=== PATIENT | female | born 1965 | race Caucasian/White ===

== ENCOUNTER → 2016-10-15 | Outpatient (CLI) | payer MEDICAID | LOC: WI 11:20 | PROVIDERS: ATTEND Internal Medicine | DX: Z12.31 Encounter for screening mammogram for malignant neoplasm of breast (principal); N63 Unspecified lump in breast | CPT/HCPCS: 77067; G0202 ==

== ENCOUNTER → 2016-11-05 | Outpatient (CLI) | payer MEDICAID | LOC: WI 12:02 | PROVIDERS: ATTEND Internal Medicine | DX: N63 Unspecified lump in breast (principal) | CPT/HCPCS: G0206-52 ==

== ENCOUNTER 2017-03-01 17:27 | Emergency (ER) | payer MEDICAID ==
[2017-03-01 17:36] VITALS: BP 140/82
[2017-03-01] MEDS ORDERED: SULFAMETHOXAZOLE/TRIMETHOPRIM 800-160 MG TABLET PO ONE (18:05)
[2017-03-01] MEDS ORDERED: IBUPROFEN 800 MG TABLET PO ONE (18:05)
[2017-03-01] MEDS ORDERED: CEPHALEXIN 500 MG CAPSULE PO ONE (18:08)
--- NOTE | 2017-03-01 18:10 | ER Document Report ---
ED Skin Rash/Insect Bite/Abscs - General Chief Complaint: Abscess Stated Complaint: POSSIBLE SPIDER BITE Time Seen by Provider: 03/01/17 17:50 Mode of Arrival: Ambulatory Information source: Patient Notes: -year-old female presents to ED for an abscess to the right posterior upper arm. She states she had a redness for the last 2-3 days. She denies any drainage. She also has nasal congestion with pain in both ears. TRAVEL OUTSIDE OF THE [place] IN LAST 30 DAYS: No - HPI Patient complains to provider of: Tender/swollen area - Right upper posterior arm Onset: Other - Several days Onset/Duration: Gradual Quality of pain: Sharp Severity: Moderate Pain Level: 4 Skin Character: Abscess, Other - Runny nose nasal pressure ear pain Quality of rash: Painful Identify cause: No Exacerbated by: Movement Relieved by: Denies Similar symptoms previously: Yes Recently seen / treated by doctor: No - Related Data Allergies/Adverse Reactions: Penicillins Allergy (Verified 11/26/15 01:05) Past Medical History - General Information source: Patient - Social History Smoking Status: Never Smoker Cigarette use (# per day): No Chew tobacco use (# tins/day): No Smoking Education Provided: No Frequency of alcohol use: None Drug Abuse: None Lives with: Family Family History: CAD, Hyperlipidemia, Malignancy, Other - Past Medical History Cardiac Medical History: Reports: Hx Hypercholesterolemia, Hx Hypertension Pulmonary Medical History: Reports: Hx Asthma EENT Medical History: Reports: None Neurological Medical History: Reports: Hx Migraine Endocrine Medical History: Reports: Hx Hypothyroidism Renal/ Medical History: Reports: None Malignancy Medical History: Reports: None GI Medical History: Reports: Hx Gastroesophageal Reflux Disease Musculoskeltal Medical History: Reports Hx Muscle Spasm Skin Medical History: Reports Hx Cellulitis Psychiatric Medical History: Reports: Hx Anxiety, Hx Bipolar Disorder, Hx Depression Traumatic Medical History: Reports: None Infectious Medical History: Reports: None Surgical Hx: Negative Past Surgical History: Reports: None - Immunizations Immunizations up to date: Yes Hx Diphtheria, Pertussis, Tetanus Vaccination: Yes - 5yr Review of Systems - Review of Systems Constitutional: Recent illness EENT: Ear pain, Nose discharge, Sinus discharge Cardiovascular: No symptoms reported Respiratory: No symptoms reported Gastrointestinal: No symptoms reported Genitourinary: No symptoms reported Female Genitourinary: No symptoms reported Musculoskeletal: No symptoms reported Skin: Other - Tender swollen red area to the right posterior upper arm for the past 2-3 days Physical Exam - Vital signs Vitals: Temp Pulse Resp BP Pulse Ox 98.1 F 90 18 140/82 H 96 03/01/17 17:34 03/01/17 17:34 03/01/17 17:34 03/01/17 17:34 03/01/17 17:34 Interpretation: Normal - General General appearance: Appears well, Alert - HEENT Head: Normocephalic, Atraumatic Eyes: Normal Pupils: PERRL Ears: Normal External canal: Normal Tympanic membrane: Normal Sinus: Normal Nasal: Purulent discharge, Swelling Mouth/Lips: Normal Mucous membranes: Normal Pharynx: Post nasal drainage Neck: Normal - Respiratory Respiratory status: No respiratory distress Chest status: Nontender Breath sounds: Normal Chest palpation: Normal - Cardiovascular Rhythm: Regular Heart sounds: Normal auscultation Murmur: No - Abdominal Inspection: Normal Distension: No distension Bowel sounds: Normal Tenderness: Nontender Organomegaly: No organomegaly - Back Back: Normal, Nontender - Extremities General upper extremity: Normal color, Normal ROM, Normal temperature General lower extremity: Normal inspection, Nontender, Normal color, Normal ROM , Normal temperature, Normal weight bearing. No: Kenya's sign Arm: Tender - The swollen area on the right upper posterior arm. Abscess - Neurological Neuro grossly intact: Yes Cognition: Normal Orientation: AAOx4 Clarissa Coma Scale Eye Opening: Spontaneous [place] Coma Scale Verbal: Oriented Clarissa Coma Scale Motor: Obeys Commands Clarissa Coma Scale Total: 15 Speech: Normal Motor strength normal: LUE, RUE, LLE, RLE Sensory: Normal - Psychological Associated symptoms: Normal affect, Normal mood - Skin Skin Temperature: Warm Skin Moisture: Dry Skin Color: Normal Skin irregularity: Abscess - Right upper posterior arm Irregularity with: Swelling, Tenderness Course - Vital Signs Vital signs: Temp Pulse Resp BP Pulse Ox 98.1 F 90 18 140/82 H 96 03/01/17 17:34 03/01/17 17:34 03/01/17 17:34 03/01/17 17:34 03/01/17 17:34 Procedures - Incision and Drainage Right Upper Arm Type: Simple Anesthetic type: Other - none mL's of anesthetic: 0 Blade size: Other - 18 ga needle I&D procedure: Betadine prep applied Incision Method: Incision made with needle Amount/type of drainage: moderate amount of drainage Discharge - Discharge Clinical Impression: Abscess of right arm URI (upper respiratory infection) Qualifiers: URI type: unspecified URI Qualified Code(s): J06.9 - Acute upper respiratory infection, unspecified Condition: Stable Disposition: HOME, SELF-CARE Instructions: Family Physicians / Practices Additional Instructions: ABSCESS: You have an abscess (boil). This a pus-forming infection, usually due to staph. Some boils may be left to drain on their own, but most require lancing. From the time the tender lump first appears, it may be three or four days before the abscess is ready to scarlett. Local heat and rest help at this stage of treatment. An antibiotic may prevent spread of the infection. Once the abscess is opened, packing may be placed into it. This is done so pus is not sealed inside by premature closure of the cavity. The packing will be removed at your follow-up visit or you may be advised to remove it yourself at home. Sometimes this packing must be replaced a few times during healing. The wound will heal with surprisingly little scar. Depending on the size and location of an abscess, healing can take one to four weeks. You may shower and wash the area around the incision site two or three times a day. Antibiotics may be prescribed, but are usually not necessary after an abscess has been drained. If you develop fever, chills, worsening pain, or increasing swelling in the area, call the doctor or return immediately. UPPER RESPIRATORY ILLNESS: You have a viral infection of the respiratory passages -- a "cold." This common infection causes nasal congestion, drainage, and often sore throat and cough. It is highly contagious. The disease usually lasts about 10 to 14 days. There is no "cure" for the viral infection -- it must run its course. If there is a complication, such as bacterial infection in the nose, sinuses, middle ear, or bronchial tubes, antibiotics may be required. The antibiotics won't affect the virus. Drink plenty of fluids. A humidifier may help. An expectorant medication or decongestant may make you more comfortable. Use acetaminophen or ibuprofen for fever or aches. See the doctor if fever persists over two days, if there is any significant worsening of your symptoms, or if you simply fail to improve as expected. POST INCISION AND DRAINAGE: You have had an incision made to allow drainage of an abscess. The incision must remain open so that pus and debris can drain from the wound. If the abscess cavity is large, packing is placed. This keeps the tissues from collapsing and trapping pus inside, while the body shrinks the cavity. The packing may need to be replaced every day or two. The physician will instruct you on the packing. Keep a bulky dressing over the area. Replace it if it becomes saturated with blood or pus. Do not disturb the packing (if present). You may shower and cleanse the area with gentle soap and warm water two or three times a day. Local warmth may be soothing, and may promote faster healing. Return if you develop high fever or chills, or if you note spreading redness, increasing swelling, or increasing tenderness. CEPHALEXIN: The antibiotic you've been prescribed is a member of the cephalosporin class. This type of antibiotic covers a wide variety of infections, including those of the skin, lungs, and urinary tract. It's useful for staph infections. This antibiotic is slightly similar to the penicillin family. In rare cases , a person who is allergic to penicillin will also be allergic to this medication. If you have had a severe allergic reaction to penicillin, and have not taken this antibiotic since that time, notify your doctor. Antibiotics which cover many germs ("broad spectrum" antibiotics) are more likely to cause diarrhea or "yeast" infections. Women prone to vaginal yeast problems may suffer an attack after taking this antibiotic. In infants, oral thrush (white spots "stuck" on the cheek) or yeast diaper rash may result. See your doctor if these problems occur. Call at once if you develop itching, hives , shortness of breath, or lightheadedness. TRIMETHOPRIM-SULFA: You have been given a prescription for trimethoprim-sulfa (TMS, Septra, Bactrim). This is a combination antibiotic of the sulfa class, often used for urinary tract infections, middle ear infections, bronchitis, shigella intestinal infection, and Pneumocystis pneumonia. TMS is usually well-tolerated. Occasional side effects include nausea and decreased appetite. Septra is not recommended for infants less than two months of age. Do not take this medication if you have experienced severe side effects or allergy to sulfa medicine. You should stop this medicine at once and contact your physician if you develop any rash, joint pain, shortness of breath, bruising, or jaundice ( yellow color in the skin), or if you develop any other new or unusual symptoms. FOLLOW-UP CARE: Most simple abscesses will not require a follow up visit. If you had packing placed in the abscess, remove it as instructed by the physician. If you have been referred to a physician for follow-up care, call the physicians office for an appointment as you were instructed or within the next two days. If you experience worsening or a significant change in your symptoms, return to the Emergency Department at any time for re-evaluation. Prescriptions: Cephalexin Monohydrate [Keflex 500 mg Capsule] 500 mg PO QID #20 capsule Sulfamethoxazole/Trimethoprim [Septra-Ds 800-160 mg Tablet] 1 tab PO BID #14 tablet Forms: Elevated Blood Pressure Referrals: BERTO APONTE MD [Primary Care Provider] - Follow up as needed
== END 2017-03-01 18:21 | disposition home or self-care (01) ==
LOC: ER 17:27
PROC: 0H9BXZZ Drainage of Right Upper Arm Skin, External Approach (ICD-10-PCS; principal; 2017-03-01)
DX: L02.413 Cutaneous abscess of right upper limb (principal); J06.9 Acute upper respiratory infection, unspecified; R09.81 Nasal congestion; H92.03 Otalgia, bilateral; I10 Essential (primary) hypertension; J45.909 Unspecified asthma, uncomplicated; Z88.0 Allergy status to penicillin
CPT/HCPCS: 99283; 87070; 87205; 87075; 10060; J3490 ×2

== ENCOUNTER → 2018-02-11 | Outpatient (CLI) | payer MEDICAID ==
--- NOTE | 2018-02-11 10:45 | WOMENS IMAGING REPORT ---
EXAM DESCRIPTION: 3D SCREENING MAMMO BILAT COMPLETED DATE/TIME: 02/11/2018 10:26 am REASON FOR STUDY: SCREENING MAMMO Z12.31 ENCNTR SCREEN MAMMOGRAM FOR MALIGNANT NEOPLASM OF JESSICA COMPARISON: 10/15/2016 and 09/27/2014. TECHNIQUE: Standard craniocaudal and mediolateral oblique views of each breast recorded using digita l acquisition and breast tomosynthesis. LIMITATIONS: None. FINDINGS: No masses, calcifications or architectural distortion. No areas of suspicion. Read with the assistance of CAD. .[facility] - R2 [employer] Version 1.3 .[facility] - R2 [employer] Version 1.3 .[facility] - R2 C[employer] Version 2.4 .[facility] - R2 Cenova Version 2.4 .[facility] - R2 [employer] Version 9.2 IMPRESSION: NORMAL MAMMOGRAM. BIRADS 1. BREAST DENSITY: a. The breasts are almost entirely fatty. BIRAD: 1 NEGATIVE RECOMMENDATION: ROUTINE SCREENING COMMENT: The patient has been notified of the results by letter per SA requirements. Additional no tification policies are in place for contacting patient with suspicious or incomplete findings. Quality ID #[id number]: The [employer] recommends an annual screening mammogram for women aged 40 years or over. This facility utilizes a reminder system to ensure that all patients receive reminder letters, and/or direct phone calls for appointments. This includes reminders for routine scr eening mammograms, diagnostic mammograms, or other Breast Imaging Interventions when appropriate. Th is patient will be placed in the appropriate reminder system. The [employer] (ACR) has developed recommendations for screening MRI of the breast s in certain patient populations, to be used in conjunction with mammography. Breast MRI surveillanc e may be appropriate for women with more than 20% lifetime risk of developing breast cancer as deter mined by genetic testing, significant family history of the disease, or history of mantle radiation f or Hodgkins Disease. ACR Practice Guidelines 2008. DBT Technology DBT is a type of tomographic mammography. With conventional mammography, overlapping breast tissue ma y make lesions difficult to detect, even with good compression. DBT uses an x-ray tube that rotates a round the breast, taking images at different angles. These images are then combined to create thin sl ices of the breast that the radiologist can view as a 3D reconstruction. The [employer] unit can perform full-field digital mammograms (2D imaging); or DBT (3D imaging); or both, in a combination mode that quickly performs both the mammogram and the tomosynthesis scan while the breast is still compressed. PQRS 6045F: Fluoroscopic imaging is not utilized for breast tomosynthesis. TECHNICAL DOCUMENTATION: FINDING NUMBER: (1) ASSESSMENT: (1) JOB ID: [id number] [employer]- All Rights Reserved Reading location - IP/workstation name: [facility]
== END ==
LOC: WI 10:22
PROVIDERS: ATTEND Physician Assistant
DX: Z12.31 Encounter for screening mammogram for malignant neoplasm of breast (principal)
CPT/HCPCS: 77063; 77067

== ENCOUNTER 2018-04-06 23:17 | Emergency (ER) | payer MEDICAID ==
[2018-04-07] MEDS ORDERED: DEXAMETHASONE SOD PHOS INJ 10 MG/1 ML VIAL IM ONE (00:30)
[2018-04-07] MEDS ORDERED: ALBUTEROL SULFATE HFA (90 MCG/PUFF) 8 GM MDI (1 MDI/ER DISP) IH ONE (00:31)
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
== END 2018-04-07 01:01 | disposition home or self-care (01) ==
LOC: ER 23:17
DX: J06.9 Acute upper respiratory infection, unspecified (principal); R06.02 Shortness of breath; R05 Cough; J45.909 Unspecified asthma, uncomplicated; Z88.0 Allergy status to penicillin; E78.00 Pure hypercholesterolemia, unspecified; I10 Essential (primary) hypertension; E03.9 Hypothyroidism, unspecified; F41.9 Anxiety disorder, unspecified; F32.9 Major depressive disorder, single episode, unspecified; R40.2412 Glasgow coma scale score 13-15, at arrival to emergency department
CPT/HCPCS: 99284; 96372; J1100; J3490

== ENCOUNTER 2018-04-16 20:41 | Emergency (ER) | payer MEDICAID ==
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
--- NOTE | 2018-04-17 00:01 | RADIOLOGY REPORT (SQ) ---
EXAM DESCRIPTION: CT CERVICAL SPINE WITHOUT IV CONTRAST COMPLETED DATE/TME: 04/16/2018 23:13 CLINICAL HISTORY: 53 years, Female, fall COMPARISON: None. TECHNIQUE: Axial CT images of the cervical spine were obtained without contrast. Sagittal and coronal reformats were performed. DLP 521 Images stored on PACS. All CT scanners at this facility use dose modulation, iterative reconstruction, and/or weight based dosing when appropriate to reduce radiation dose to as low as reasonably achievable (ALARA). [facility]: Dose Right [facility]: CareDose [facility]: Dose Right [facility]: Teradose 4D [facility]: [employer] LIMITATIONS: None. FINDINGS: The alignment of the cervical spine is satisfactory. There is no acute fracture or subluxation. The vertebral heights are maintained. The craniocervical junction is intact. The prevertebral soft tissues are normal. There is multilevel spondylosis at C4-C5 to C7-T1 with disc space narrowing, endplate sclerosis and marginal osteophytes. IMPRESSION: No acute fracture or subluxation TECHNICAL DOCUMENTATION: Quality ID # [id number]: Final reports with documentation of one or more dose reduction techniques (e.g., Automated exposure control, adjustment of the mA and/or kV according to patient size, use of iterative reconstruction technique) 2010 [employer]- All Rights Reserved
--- NOTE | 2018-04-17 00:49 | RADIOLOGY REPORT (SQ) ---
2 VIEWS OF THE RIGHT FOREARM 3 VIEWS OF THE RIGHT HAND HISTORY: Pain status post fall. COMPARISON: None. FINDINGS/IMPRESSION: Generalized osteopenia is present. No acute fracture or malalignment. Joint spaces are preserved. No focal soft tissue swelling is seen.
--- NOTE | 2018-04-17 00:51 | RADIOLOGY REPORT (SQ) ---
3 VIEWS OF THE RIGHT FIRST TOE HISTORY: Fall. COMPARISON: None. FINDINGS/IMPRESSION: Generalized osteopenia is present. Nondisplaced chip fracture of the base of the first proximal phalanx with overlying soft tissue swelling. No dislocation is seen.
--- NOTE | 2018-04-17 00:52 | RADIOLOGY REPORT (SQ) ---
XR CHEST 2 VIEWS HISTORY: Fall. COMPARISON: None. FINDINGS/IMPRESSION: Normal cardiomediastinal silhouette. Lungs are clear. No pleural effusion or pneumothorax is seen. No acute osseous findings.
[2018-04-17 01:56] VITALS: BP 141/76
--- NOTE | 2018-04-17 20:26 | EKG REPORT ---
SEVERITY:- ABNORMAL ECG - SINUS RHYTHM NONSPECIFIC INTRAVENTRICULAR CONDUCTION DELAY LOW VOLTAGE THROUGHOUT BORDERLINE R WAVE PROGRESSION, ANTERIOR LEADS : Confirmed by: Nayana Melendez MD 17-Apr-2018 20:25:34
== END 2018-04-17 01:45 | disposition home or self-care (01) ==
LOC: ER 20:41
DX: S16.1XXA Strain of muscle, fascia and tendon at neck level, initial encounter (principal); S92.414A Nondisplaced fracture of proximal phalanx of right great toe, initial encounter for closed fracture; R07.9 Chest pain, unspecified; M79.601 Pain in right arm; W19.XXXA Unspecified fall, initial encounter; I10 Essential (primary) hypertension; E78.00 Pure hypercholesterolemia, unspecified; E03.9 Hypothyroidism, unspecified
CPT/HCPCS: 71046; 72125; 93005; 93010; 99285

== ENCOUNTER 2018-04-19 16:49 | Emergency (ER) | payer MEDICAID ==
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
--- NOTE | 2018-04-19 19:28 | ER Document Report ---
ED General - General Chief Complaint: Knee Pain Stated Complaint: FALL/RIGHT KNEE PAIN, SWELLING Time Seen by Provider: 04/19/18 17:21 Mode of Arrival: Ambulatory Notes: Patient is a 53-year-old female that presents to the emergency department for chief complaint of knee pain, chest and neck pain after fall and injury. Patient had a fall a few days ago, and was seen in the emergency department at that time, she did fracture her right great toe, she states that the reason she came back as she has been having pain in her right knee, she has been having a different gait as a result of her fracture, may have strained it. She does have osteoarthritis, and sees pain management for this. She denies any additional falls since a few days ago, she currently rates her pain as a 4 out of 10, worse with ambulation, describes it as an aching and throbbing sensation , and she felt some swelling in her knee which she decided to come to the emergency department to have it evaluated. Past Medical History: Osteoarthritis Past Surgical History: Denies pertinent surgical history Social History: Denies tobacco use, denies alcohol or drug use. Family History: Reviewed and noncontributory for presenting illness Allergies: Reviewed, see documented allergy list. REVIEW OF SYSTEMS: Unless otherwise stated in this report the patient's positive and negative responses for review of systems for constitutional, eyes, ENT, cardiovascular, respiratory, gastrointestinal, neurological, genitourinary, musculoskeletal, and integumentary systems and related systems to the presenting problem are either as stated in the HPI or were not pertinent or were negative for the symptoms and/or complaints related to the presenting medical problem. PHYSICAL EXAMINATION: Vital signs reviewed, nursing noted reviewed. GENERAL: Well-appearing, well-nourished and in no acute distress. HEAD: Atraumatic, normocephalic. EYES: Eyes appear normal, extraocular movements intact, sclera anicteric, conjunctiva are normal. ENT: nares patent, oropharynx clear without exudates. Moist mucous membranes. NECK: Normal range of motion, supple without lymphadenopathy LUNGS: Breath sounds clear to auscultation bilaterally and equal. No wheezes rales or rhonchi. HEART: Regular rate and rhythm without murmurs ABDOMEN: Soft, nontender, normoactive bowel sounds. No rebound, guarding, or rigidity. No masses appreciated. EXTREMITIES: There is mild tenderness to palpation to the joint line of the right knee, and there is a small effusion appreciated, some discomfort with range of motion of the right knee, but overall good range of motion, on the right great toe there is mild ecchymosis and tenderness to palpation, good cap refill, and sensation intact. The rest of the patient's extremity exam is grossly unremarkable. No gross deformities. Nontender, good range of motion, no pitting or edema. NEUROLOGICAL: No focal neurological deficits. Moves all extremities spontaneously Motor and sensory grossly intact on exam. PSYCH: Normal mood, normal affect. SKIN: Warm, Dry, normal turgor, no rashes or lesions noted on exposed skin TRAVEL OUTSIDE OF THE [place] IN LAST 30 DAYS: No - Related Data Allergies/Adverse Reactions: Penicillins Allergy (Verified 11/26/15 01:05) Past Medical History - General Information source: Patient - Social History Smoking Status: Never Smoker Frequency of alcohol use: None Drug Abuse: None Family History: CAD, Hyperlipidemia, Malignancy, Other Patient has suicidal ideation: No Patient has homicidal ideation: No - Past Medical History Cardiac Medical History: Reports: Hx Hypercholesterolemia, Hx Hypertension Denies: Hx Heart Murmur Pulmonary Medical History: Reports: Hx Asthma Denies: Hx Respiratory Failure, Hx Sleep Apnea, Hx Tuberculosis Neurological Medical History: Reports: Hx Migraine Endocrine Medical History: Reports: Hx Hypothyroidism Renal/ Medical History: Denies: Hx Peritoneal Dialysis GI Medical History: Reports: Hx Gastroesophageal Reflux Disease. Denies: Hx Pancreatitis Musculoskeletal Medical History: Reports Hx Muscle Spasm Skin Medical History: Reports Hx Cellulitis Psychiatric Medical History: Reports: Hx Anxiety, Hx Bipolar Disorder, Hx Depression - Immunizations Immunizations up to date: Yes Hx Diphtheria, Pertussis, Tetanus Vaccination: Yes - 5yr Physical Exam - Vital signs Vitals: Temp Pulse Resp BP Pulse Ox 97.6 F 113 H 18 112/50 L 98 04/19/18 17:27 04/19/18 17:27 04/19/18 17:27 04/19/18 17:27 04/19/18 17:27 Course - Re-evaluation Re-evalutation: Patient seen and examined vital signs reviewed. Patint was evaluated and treated as appropriate for the patient's presenting symptoms and complaint, with consideration of any critical or life threatening conditions that may be associated with their obtained history and exam as noted above. Patient was offered Toradol for her pain, but declined at this time X-rays of the knee demonstrated osteoarthritis, without acute bony injury or fracture. The patient was re-evaluated and was stable, pain controlled Evaluation was most consistent with knee strain, likely overuse from recent injuries. We will have the patient follow-up with orthopedics, and she [place] sees pain management. Plan of care was discussed with the patient at this point, after careful consideration I feel that that patient can be discharged from the emergency department, the patient was educated treatments and reasons to return to the emergency department based on their presumed diagnosis as noted above, they were advised to followup with a primary care physician in 2-3 days. Patient was agreeable to plan of care. *Note is created using voice recognition software and may contain spelling, syntax or grammatical errors. Knee X-Ray 04/19/18 19:49 IMPRESSION: No acute fracture or dislocation. Degenerative changes. Small suprapatellar fluid collection. - Vital Signs Vital signs: Temp Pulse Resp BP Pulse Ox 97.6 F 113 H 18 112/50 L 98 04/19/18 17:27 04/19/18 17:27 04/19/18 17:27 04/19/18 17:27 04/19/18 17:27 - EKG Interpretation by Me Additional EKG results interpreted by me: 04/19/18 19:27 EKG demonstrates sinus rhythm with a ventricular rate of 64 bpm, slight left axis deviation, no ST changes noted, poor R wave progression, this is compared with prior EKG from 04/16/2018, without significant change. Discharge - Discharge Clinical Impression: Knee pain Qualifiers: Chronicity: acute Laterality: right Qualified Code(s): M25.561 - Pain in right knee Condition: Stable Disposition: HOME, SELF-CARE Instructions: Sprained Knee ([facility]) Additional Instructions: Please follow-up with orthopedic surgery. Referrals: KOFI RAUSCH MD [Primary Care Provider] - Follow up in 3-5 days SUSAN CONTE MD [ACTIVE STAFF] - Follow up in 3-5 days
[2018-04-19] MEDS ORDERED: KETOROLAC TROMETHAMINE 60 MG/2 ML SDV IM ONE (20:52)
--- NOTE | 2018-04-19 22:20 | RADIOLOGY REPORT (SQ) ---
EXAM DESCRIPTION: Right knee x-rays, four views. April 19, 2018 at 8:47 PM CLINICAL HISTORY: right knee pain, after fall COMPARISON: None FINDINGS: Four x-ray views of the right knee were submitted. There is narrowing and osteophytic formation at the medial, lateral and patellofemoral compartments. There is no acute fracture or dislocation. There is no radiopaque foreign body material. There is a small suprapatellar fluid collection. IMPRESSION: No acute fracture or dislocation. Degenerative changes. Small suprapatellar fluid collection.
--- NOTE | 2018-04-19 22:59 | EKG REPORT ---
SEVERITY:- BORDERLINE ECG - SINUS RHYTHM BORDERLINE R WAVE PROGRESSION, ANTERIOR LEADS BORDERLINE T ABNORMALITIES, INFERIOR LEADS : Confirmed by: Charla Pino 19-Apr-2018 22:59:02
[2018-04-20 05:11] VITALS: BP 111/79
== END 2018-04-19 21:20 | disposition home or self-care (01) ==
LOC: ER 16:49
DX: M17.11 Unilateral primary osteoarthritis, right knee (principal); M25.561 Pain in right knee; M25.461 Effusion, right knee; R07.9 Chest pain, unspecified; M54.2 Cervicalgia; S92.401A Displaced unspecified fracture of right great toe, initial encounter for closed fracture; W19.XXXA Unspecified fall, initial encounter; J45.909 Unspecified asthma, uncomplicated; I10 Essential (primary) hypertension; Z88.0 Allergy status to penicillin
CPT/HCPCS: 93005; 93010; 99283

== ENCOUNTER 2018-05-21 22:36 | Emergency (ER) | payer MEDICAID ==
[2018-05-21 22:46] VITALS: BP 103/89
[2018-05-22] MEDS ORDERED: IBUPROFEN 800 MG TABLET PO ONE (00:13)
--- NOTE | 2018-05-22 01:38 | RADIOLOGY REPORT (SQ) ---
EXAM DESCRIPTION: XR ANKLE 3 OR MORE VIEWS COMPLETED DATE/TME: 05/22/2018 00:12 CLINICAL HISTORY: 53 years, Female, pain, burise COMPARISON: None. NUMBER OF VIEWS: 3 TECHNIQUE: 3 view right ankle LIMITATIONS: None. FINDINGS: Osteopenia. Diffuse soft tissue swelling. Negative for acute fracture or dislocation. Well-corticated 2 mm ossific density near the lateral malleolus may relate to remote avulsion fracture. Ankle mortise is otherwise intact. Calcaneal spurs are present. Degenerative changes of the midfoot. IMPRESSION: Osteopenia. Negative for acute fracture or dislocation. Diffuse soft tissue swelling. Probable remote avulsion injury of the lateral malleolus. Calcaneal spurs. Degenerative change. 2010 [employer]- All Rights Reserved
--- NOTE | 2018-05-22 01:41 | ER Document Report ---
Addendum entered and electronically signed by BROWN DEL VALLE PA-C 07/09/18 01:23: Procedures - Immobilization Right Lower Ankle Pre-Proc Neuro Vasc Exam: Normal Immobilizer type: Short Leg Posterior Performed by: Provider assisted, PCT Post-Proc Neuro Vasc Exam: Normal Alignment checked and good: Yes Original Note: HPI - HPI Patient complains to provider of: Right ankle pain Pain Level: 4 Context: Patient is a morbidly obese 53-year-old female presenting to the emergency department complaining of her right ankle pain. Patient states she was to this facility about a month ago from a fall and stated at that time she broke her right big toe. Patient states she was instructed to walk with a boot but has not done that because it was uncomfortable. Patient states the pain in her right foot and knee had since subsided but over the last couple of days it has started again. Patient states today she noticed bruising to the right aspect of her ankle which concerned her so she presents to the emergency room. Patient is unsure of any recent falls or injuries. Patient states she does have osteoarthritis and has chronic pain in bilateral knees. Patient states over the last 2 months she has been living in a hotel and has been doing a lot of walking. Patient states she is under a lot of stress but is unable to recall a time where she would have fallen or hurt her right ankle. Past medical history: GERD, depression, hyperlipidemia, osteoarthritis Meds, Lipitor, omeprazole, Percocet Allergies: penicillin Patient states she sees pain management for her Percocet medications due to osteoarthritis and chronic low back pain. - CONSTITUTIONAL Constitutional: DENIES: Fever, Chills - REPRODUCTIVE Reproductive: DENIES: : - MUSCULOSKELETAL Musculoskeletal: REPORTS: Extremity pain - right ankle, right calf Past Medical History - General Information source: Patient - Social History Smoking Status: Never Smoker Frequency of alcohol use: None Drug Abuse: None Lives with: Family Family History: CAD, Hyperlipidemia, Malignancy, Other Patient has suicidal ideation: No Patient has homicidal ideation: No - Past Medical History Cardiac Medical History: Reports: Hx Hypercholesterolemia, Hx Hypertension Denies: Hx Heart Murmur Pulmonary Medical History: Reports: Hx Asthma Denies: Hx Respiratory Failure, Hx Sleep Apnea, Hx Tuberculosis Neurological Medical History: Reports: Hx Migraine Endocrine Medical History: Reports: Hx Hypothyroidism Renal/ Medical History: Denies: Hx Peritoneal Dialysis GI Medical History: Reports: Hx Gastroesophageal Reflux Disease. Denies: Hx Pancreatitis Musculoskeletal Medical History: Reports Hx Muscle Spasm Skin Medical History: Reports Hx Cellulitis Psychiatric Medical History: Reports: Hx Anxiety, Hx Bipolar Disorder, Hx Depression - Immunizations Immunizations up to date: Yes Hx Diphtheria, Pertussis, Tetanus Vaccination: Yes - 5yr Vertical Provider Document - CONSTITUTIONAL Agree With Documented VS: Yes Notes: GENERAL: Morbidly obese alert, interacts well. No acute distress. HEAD: Normocephalic, atraumatic. EYES: Pupils equal, round, and reactive to light. Extraocular movements intact. ENT: Oral mucosa moist, tongue midline. NECK: Full range of motion. Supple. Trachea midline. LUNGS: Clear to auscultation bilaterally, no wheezes, rales, or rhonchi. No respiratory distress. HEART: Regular rate and rhythm. No murmur ABDOMEN: Soft, non-tender. Non-distended. Bowel sounds present in all 4 quadran ts. EXTREMITIES: Moves all 4 extremities spontaneously. Nonpitting edema noted bilateral lower extremities. Normal radial and dorsalis pedis pulses bilaterally. No cyanosis. Ecchymosis noted right lateral malleolus. Minor increase in swelling noted to right ankle compared to left. Full range of motion right ankle and left ankle, patient was able to ambulate to the hospital room. BACK: no cervical, thoracic, lumbar midline tenderness. No saddle anesthesia, normal distal neurovascular exam. NEUROLOGICAL: Alert and oriented x3. Normal speech. cranial nerves II through XII grossly intact PSYCH: Normal affect, normal mood. SKIN: Warm, dry, normal turgor. - INFECTION CONTROL TRAVEL OUTSIDE OF THE [place] IN LAST 30 DAYS: No Course - Re-evaluation Re-evalutation: 05/22/18 01:49 Discussed with patient at bedside x-ray results. Discussed need for splinting and crutches at this time. Also discussed need to follow-up with orthopedics. Return precautions discussed. - Vital Signs Vital signs: Temp Pulse Resp BP Pulse Ox 98.1 F 78 20 103/89 H 98 05/21/18 22:45 05/21/18 22:45 05/21/18 22:45 05/21/18 22:45 05/21/18 22:45 Discharge - Discharge Clinical Impression: Avulsion fracture of ankle Qualifiers: Encounter type: initial encounter Fracture type: closed Laterality: right Qualified Code(s): S82.891A - Other fracture of right lower leg, initial encounter for closed fracture Condition: Stable Disposition: HOME, SELF-CARE Instructions: Splint Precautions ([facility]), Avulsion Fracture of the Ankle ([facility]) Additional Instructions: As we discussed you have been seen and treated for something called an avulsion fracture. This is a small fracture of 1 of the bones in your lower leg. You have been placed in a splint and you should not take the splint off until you follow-up with orthopedics. Orthopedics numbers are within this packet. Please return to the emergency room for any worsening pain, or any other concerning symptoms. Referrals: KOFI RAUSCH MD [Primary Care Provider] - Follow up as needed SUSAN CONTE MD [ACTIVE STAFF] - Follow up as needed
== END 2018-05-22 02:57 | disposition home or self-care (01) ==
LOC: ER 22:36
PROC: 2W3QX1Z Immobilization of Right Lower Leg using Splint (ICD-10-PCS; principal; 2018-05-21)
DX: S82.891A Other fracture of right lower leg, initial encounter for closed fracture (principal); M25.571 Pain in right ankle and joints of right foot; M79.671 Pain in right foot; X58.XXXA Exposure to other specified factors, initial encounter; I10 Essential (primary) hypertension; J45.909 Unspecified asthma, uncomplicated
CPT/HCPCS: 99283; 73610; 29515; J3490

== ENCOUNTER 2018-09-30 12:39 | Emergency (ER) | payer MEDICAID ==
[2018-09-30 13:42] VITALS: BP 141/92
--- NOTE | 2018-09-30 15:41 | ER Document Report ---
ED Medical Screen (RME) - General Chief Complaint: Leg Pain Stated Complaint: EAR PAIN Time Seen by Provider: 09/30/18 15:27 Primary Care Provider: GABE MCKEON PA-C [Primary Care Provider] - Follow up as needed TRAVEL OUTSIDE OF THE [place] IN LAST 30 DAYS: No - HPI Notes: 09/30/18 15:38 53-year-old female presents to the ED with complaints of having right greater than left bilateral calf pain that has become progressively worse over the last week. Denies any recent surgery, patient does not take control, denies any long periods of immobilization, has not had any recent chemotherapy, patient does take baby aspirin daily. Patient states she has had issues with swelling in her legs bilaterally as well as deferred knee pain, she is "up and down all day" however she was concerned that she may have a blood clot. No history of PEs, DVTs or clotting disorders. Patient does smoke "sometimes". Denies any chest pain, shortness of breath, nausea vomiting diarrhea, denies any numbness or tingling of bilateral arms or legs. Able to bear full weight. Has tried [id number]-ymdtlec ibuprofen without full relief. I have greeted and performed a rapid initial assessment of this patient. A comprehensive ED assessment and evaluation of the patient, analysis of test results and completion of medical decision making process will be conducted by an additional ED providers. - Related Data Allergies/Adverse Reactions: Penicillins Allergy (Verified 09/30/18 13:14) Past Medical History - Social History Chew tobacco use (# tins/day): No Frequency of alcohol use: None Drug Abuse: None Family history: Other - Past Medical History Cardiac Medical History: Reports: Hx Hypercholesterolemia, Hx Hypertension Denies: Hx Heart Murmur Pulmonary Medical History: Reports: Hx Asthma Denies: Hx Respiratory Failure, Hx Sleep Apnea, Hx Tuberculosis Neurological Medical History: Reports: Hx Migraine Endocrine Medical History: Reports: Hx Hypothyroidism Renal/ Medical History: Denies: Hx Peritoneal Dialysis GI Medical History: Reports: Hx Gastroesophageal Reflux Disease. Denies: Hx Pancreatitis Musculoskeltal Medical History: Reports Hx Arthritis, Reports Hx Muscle Spasm Skin Medical History: Reports Hx Cellulitis Psychiatric Medical History: Reports: Hx Anxiety, Hx Bipolar Disorder, Hx Depression - Immunizations Immunizations up to date: Yes Hx Diphtheria, Pertussis, Tetanus Vaccination: Yes - 5yr Physical Exam - Vital signs Vitals: Temp Pulse Resp BP Pulse Ox 97.7 F 53 L 20 141/92 H 100 09/30/18 13:40 09/30/18 13:40 09/30/18 13:40 09/30/18 13:40 09/30/18 13:40 - Extremities Calf: Tender Ankle: Normal Foot: Normal Notes: bilateral pedal edema, nonpitting. Distal pulses +2 bilateral lower extremities equally Course - Vital Signs Vital signs: Temp Pulse Resp BP Pulse Ox 97.7 F 53 L 20 141/92 H 100 09/30/18 13:40 09/30/18 13:40 09/30/18 13:40 09/30/18 13:40 09/30/18 13:40 Doctor's Discharge - Discharge Referrals: GABE MCKEON PA-C [Primary Care Provider] - Follow up as needed
[2018-09-30 15:58] LABS: ABSOLUTE EOSINOPHILS # (AUTO) 0.2 10^3/uL (0.0-0.6); ABSOLUTE LYMPHOCYTES (AUTO) 2.5 10^3/uL (0.5-4.7); ABSOLUTE MONOCYTES (AUTO) 0.6 10^3/uL (0.1-1.4); ABSOLUTE NEUT (AUTO) 4.1 10^3/uL (1.7-8.2); BASOPHILS % (AUTO) 0.6 % (0-2); EOSINOPHILS % (AUTO) 2.4 % (0-6); HEMATOCRIT 42.4 % (36.0-47.0); HEMOGLOBIN 13.7 g/dL (12.0-15.5); LYMPHOCYTES % (AUTO) 33.3 % (13-45); MEAN CORPUSCULAR HEMOGLOBIN 29.4 pg (27.0-33.4); MEAN CORPUSCULAR HGB CONC 32.4 g/dL (32.0-36.0); MEAN CORPUSCULAR VOLUME 91 fl (80-97); MONOCYTES % (AUTO) 8.7 % (3-13); PLATELET COUNT 199 10^3/uL (150-450); RED BLOOD COUNT 4.68 10^6/uL (3.72-5.28); RED CELL DISTRIBUTION WIDTH 15.1 % (11.5-14.0); TOTAL CELLS COUNTED % (AUTO) 100 %; WHITE BLOOD COUNT 7.4 10^3/uL (4.0-10.5)
[2018-09-30 16:04] LABS: INTERNATIONAL RATION (INR) 0.92; PARTIAL THROMBOPLASTIN TIME 26.5 SEC (23.5-35.8); PROTHROMBIN TIME 12.8 SEC (11.4-15.4)
[2018-09-30 16:21] LABS: ALANINE AMINOTRANSFERASE 26 U/L (9-52); ALBUMIN 4.1 g/dL (3.5-5.0); ALKALINE PHOSPHATASE 108 U/L (38-126); ANION GAP 7 (5-19); ASPARTATE AMINO TRANSFERASE 29 U/L (14-36); BILIRUBIN,DIRECT 0.2 mg/dL (0.0-0.4); BILIRUBIN,TOTAL 0.4 mg/dL (0.2-1.3); BLOOD UREA NITROGEN 13 mg/dL (7-20); CALCIUM 9.5 mg/dL (8.4-10.2); CARBON DIOXIDE 30 mmol/L (22-30); CHLORIDE 105 mmol/L (98-107); GLUCOSE 89 mg/dL (75-110); POTASSIUM 4.6 mmol/L (3.6-5.0); SODIUM 141.5 mmol/L (137-145)
--- NOTE | 2018-10-01 12:29 | XCELERA REPORT ---
[address] [address] Lower Extremity Venous Evaluation Procedure: Color flow and duplex imaging bilaterally of the veins of the lower extremities as well as the Common Femoral veins. Right Sided Venous Evaluation Could not see Femoral to Popliteal, due to local swelling, body habitus. Otherwise normal vessel filling wall to wall, compression and augmentation as well as Colour flow down to the infrageniculate veins. Left Sided Venous Evaluation Could not see Peroneal vein, due to local swelling, body habitus. Otherwise normal vessel filling wall to wall, compression and augmentation as well as Colour flow down to the infrageniculate veins. Interpretation Summary No duplex evidence of DVT or obstruction in the bilateral lower extremities. Study challenging by inability to Visulase vessels, as mentioned, due to technical challenges. Consider other modality depending on clinical situation. Name: FRANKLIN FREEMAN Age: 53 yrs Gender: Female : 1965 Patient Status: Preadmit Patient Location: Study Date: 09/30/2018 04:07 PM Reason For Study: R>L, leg swelling/calf pain Ordering Physician: RAMA BARRETO Performed By: Chio Pardo : RAMA BARRETO > Elias Werner
== END 2018-09-30 17:12 | disposition left against medical advice (07) ==
LOC: ER 12:39
DX: M79.662 Pain in left lower leg (principal); E78.00 Pure hypercholesterolemia, unspecified; I10 Essential (primary) hypertension; Z79.82 Long term (current) use of aspirin; Z88.0 Allergy status to penicillin
CPT/HCPCS: 36415; 80053; 85025; 85610; 85730; 93970; 99281

== ENCOUNTER → 2018-12-30 | Outpatient (CLI) | payer MEDICAID ==
--- NOTE | 2018-12-30 12:26 | RADIOLOGY REPORT (SQ) ---
EXAM DESCRIPTION: L SPINE WHOLE COMPLETED DATE/TIME: 12/30/2018 10:20 am REASON FOR STUDY: LOW BACK PAIN (M54.5) M54.5 LOW BACK PAIN COMPARISON: None. NUMBER OF VIEWS: Five views including obliques. TECHNIQUE: AP, lateral, oblique, and sacral radiographic images acquired of the lumbar spine. LIMITATIONS: None. FINDINGS: MINERALIZATION: Normal. SEGMENTATION: Normal. No transitional anatomy. ALIGNMENT: Normal. VERTEBRAE: Maintained height. No fracture or worrisome bone lesion. DISCS: DISC SPACE LOSS OF HEIGHT AT L2-3 AND L5-S1. POSTERIOR ELEMENTS: Pedicles and facets are intact. No pars defect or posterior arch defects. Lower lumbar facet arthropathy at L4-5 and L5-S1. HARDWARE: None in the spine. PARASPINAL SOFT TISSUES: Normal. PELVIS: Intact as visualized. No fractures or worrisome bone lesions. SI joints intact. OTHER: No other significant finding. IMPRESSION: Degenerative disc changes at L2-3 and L5-S1 TECHNICAL DOCUMENTATION: JOB ID: [id number] [employer].- All Rights Reserved Reading location - IP/workstation name: [email or web address]
== END ==
LOC: RAD 09:38
PROVIDERS: ATTEND Physician Assistant
DX: M51.36 Other intervertebral disc degeneration, lumbar region (principal); M54.5 Low back pain
CPT/HCPCS: 72110

== ENCOUNTER → 2019-03-23 | Outpatient (CLI) | payer MEDICAID ==
--- NOTE | 2019-03-24 09:07 | RADIOLOGY REPORT (SQ) ---
EXAM DESCRIPTION: U/S THYROID/SFT TISS HD NECK COMPLETED DATE/TIME: 03/23/2019 5:16 pm REASON FOR STUDY: R22.1 LOCALIZED SWELLING, MASS AND LUMP, NECK R22.1 LOCALIZED SWELLING, MASS AND LUMP, NECK COMPARISON: None. TECHNIQUE: Dynamic and static durant-scale images acquired of the thyroid gland. Selected additional c olor/power Doppler images recorded. All images stored to PACS. LIMITATIONS: None. FINDINGS: RIGHT LOBE: Normal size. Heterogeneous echotexture. Well-circumscribed hypoechoic 4 x 4 mm nodule midpole. Well-circumscribed partially cystic 7 x 4 mm nodule upper pole. No internal calc ifications. LEFT LOBE: Normal size. Heterogeneous echotexture. 2.1 x 1.8 cm isoechoic nodule lower pole. No in ternal calcifications. ISTHMUS: 7 mm. Heterogeneous echotexture. No cystic or solid masses. OTHER: No other significant finding. IMPRESSION: Bilateral thyroid nodules. Relatively low suspicion. Annual follow up is recommended. TECHNICAL DOCUMENTATION: JOB ID: [id number] [employer]- All Rights Reserved Reading location - IP/workstation name: [email or web address]
== END ==
LOC: RAD 15:09
PROVIDERS: ATTEND Physician Assistant
DX: R22.1 Localized swelling, mass and lump, neck (principal)
CPT/HCPCS: 76536

== ENCOUNTER → 2019-06-06 | Outpatient (CLI) | payer MEDICAID ==
--- NOTE | 2019-06-07 08:17 | WOMENS IMAGING REPORT ---
EXAM DESCRIPTION: 3D SCREENING MAMMO BILAT COMPLETED DATE/TIME: 06/06/2019 11:17 am REASON FOR STUDY: Z12.31 ENCOUNTER FOR SCREENING MAMMOGRAM FOR MALIGNANT NEOPLASM OF BREAST Z12.31 ENCNTR SCREEN MAMMOGRAM FOR MALIGNANT NEOPLASM OF JESSICA COMPARISON: Multiple since 2010 EXAM PARAMETERS: Views: Standard craniocaudal and mediolateral oblique views of each breast recorded using digital acquisition and breast tomosynthesis. Read with the assistance of CAD. .[facility] - [employer] Version 9.2 LIMITATIONS: None. FINDINGS: No suspicious masses, suspicious calcifications or architectural distortion. No areas of c oncern. IMPRESSION: NEGATIVE MAMMOGRAM. BIRADS 1. BREAST DENSITY: a. The breasts are almost entirely fatty. BIRAD: ASSESSMENT: 1 NEGATIVE RECOMMENDATION: ROUTINE SCREENING Please continue yearly bilateral screening mammography/tomosynthesis in May 2020 COMMENT: The patient has been notified of the results by letter per MQSA requirements. Additional no tification policies are in place for contacting patient with suspicious or incomplete findings. Quality ID #[id number]: The [employer] recommends an annual screening mammogram for women aged 40 years or over. This facility utilizes a reminder system to ensure that all patients receive reminder letters, and/or direct phone calls for appointments. This includes reminders for routine scr eening mammograms, diagnostic mammograms, or other Breast Imaging Interventions when appropriate. Th is patient will be placed in the appropriate reminder system. TECHNICAL DOCUMENTATION: FINDING NUMBER: (1) ASSESSMENT: (1) JOB ID: [id number] [employer]- All Rights Reserved Reading location - IP/workstation name: [email or web address]
== END ==
LOC: WI 09:53
PROVIDERS: ATTEND Physician Assistant
DX: Z12.31 Encounter for screening mammogram for malignant neoplasm of breast (principal)
CPT/HCPCS: 77063; 77067

== ENCOUNTER → 2020-06-07 | Outpatient (CLI) | payer MEDICAID ==
--- NOTE | 2020-06-07 11:21 | WOMENS IMAGING REPORT ---
EXAM DESCRIPTION: BILAT SCREENING MAMMO W/CAD IMAGES COMPLETED DATE/TIME: 06/07/2020 10:38 am REASON FOR STUDY: Z12.31 ENCNTR SCREEN MAMMOGRAM FOR MALIGNANT NEOPLASM OF BREAST Z12.31 ENCNTR SCR EEN MAMMOGRAM FOR MALIGNANT NEOPLASM OF JESSICA COMPARISON: Priors back to 2012 EXAM PARAMETERS: Standard craniocaudal and mediolateral oblique views of each breast recorded using digital acquisition. Read with the assistance of CAD. .[facility] - [facility] Assembly Inspector Version 9.2 LIMITATIONS: None. FINDINGS: No suspicious masses, suspicious calcifications or architectural distortion. No areas of c oncern. IMPRESSION: NEGATIVE MAMMOGRAM. BIRADS 1 BREAST DENSITY: b. There are scattered areas of fibroglandular density. BIRAD: ASSESSMENT: 1 NEGATIVE RECOMMENDATION: ROUTINE SCREENING COMMENT: The patient has been notified of the results by letter per MQSA requirements. Additional no tification policies are in place for contacting patient with suspicious or incomplete findings. Quality ID #[id number]: The [employer] recommends an annual screening mammogram for women aged 40 years or over. This facility utilizes a reminder system to ensure that all patients receive reminder letters, and/or direct phone calls for appointments. This includes reminders for routine scr eening mammograms, diagnostic mammograms, or other Breast Imaging Interventions when appropriate. Th is patient will be placed in the appropriate reminder system. TECHNICAL DOCUMENTATION: FINDING NUMBER: (1) ASSESSMENT: (1) JOB ID: [id number] 2010 [employer]- All Rights Reserved Reading location - IP/workstation name: [email or web address]
== END ==
LOC: WI 10:02
PROVIDERS: ATTEND Physician Assistant Medical
DX: Z12.31 Encounter for screening mammogram for malignant neoplasm of breast (principal)
CPT/HCPCS: 77067